=== PATIENT | male | born 1950 | race Caucasian/White ===

== ENCOUNTER 2021-10-06 09:15 | Outpatient (CLI) | payer MEDICARE ==
[2021-10-06 11:16] LABS: Hemoglobin 13.2 g/dL (13.5-17.5); Mean Corpuscular HGB CONC 32.2 g/dL (32.0-36.0); Mean Corpuscular Hemoglobin 30.9 pg (27.0-33.0); Mean Platelet Volume 10.1 fl (7.4-10.4); Platelet Count 333 10x3/uL (150-450); RBC Distribution Width 14.4 % (11.5-14.5); Red Blood Cell (RBC) Count 4.27 10x6/uL (4.32-5.72); White Blood Cell (WBC) Count 8.4 10x3/uL (3.5-10.5)
[2021-10-06 11:19] LABS: Anion Gap 17 mmol/L (10-20); BUN (Urea Nitrogen) 13 mg/dL (8.4-25.7); Calc. Creatinine Clearance 0 mL/min (70-130); Calcium 10.1 mg/dL (7.8-10.44); Carbon Dioxide 26 mmol/L (23-31); Chloride 100 mmol/L (98-107); Glucose 134 mg/dL (83-110); Potassium 4.6 mmol/L (3.5-5.1); Sodium 138 mmol/L (136-145)
[2021-10-06 21:30] LABS: SARS-CoV-2 PCR by NAA Not Detected (NotDetected)
== END 2021-10-06 09:16 | disposition home or self-care (01) ==
LOC: LABBT 09:15
PROVIDERS: ATTEND Neurological Surgery
DX: Z01.818 Encounter for other preprocedural examination (principal); M48.061 Spinal stenosis, lumbar region without neurogenic claudication; Z20.822 Contact with and (suspected) exposure to COVID-19
CPT/HCPCS: 80048; 85027; 93005; U0003; U0005; 93010

== ENCOUNTER 2022-01-28 08:19 | Outpatient (CLI) | payer OTHER ==
[2022-01-28 10:15] LABS: Hemoglobin 13.7 g/dL (13.5-17.5); Mean Corpuscular HGB CONC 32.7 g/dL (32.0-36.0); Mean Corpuscular Volume 94.8 fl (81.2-95.1); Mean Platelet Volume 10.2 fl (7.4-10.4); Platelet Count 289 10x3/uL (150-450); RBC Distribution Width 13.2 % (11.5-14.5); Red Blood Cell (RBC) Count 4.42 10x6/uL (4.32-5.72); White Blood Cell (WBC) Count 6.9 10x3/uL (3.5-10.5)
[2022-01-28 10:42] LABS: Anion Gap 14 mmol/L (10-20); BUN (Urea Nitrogen) 12 mg/dL (8.4-25.7); Calc. Creatinine Clearance 0 mL/min (70-130); Calcium 9.6 mg/dL (7.8-10.44); Carbon Dioxide 26 mmol/L (23-31); Chloride 104 mmol/L (98-107); Glucose 168 mg/dL (83-110); Potassium 4.5 mmol/L (3.5-5.1); Sodium 139 mmol/L (136-145)
[2022-01-28 18:56] LABS: SARS-CoV-2 PCR by NAA Not Detected (NotDetected)
== END 2022-01-28 08:20 | disposition home or self-care (01) ==
LOC: LABBT 08:19
PROVIDERS: ATTEND Neurological Surgery
DX: Z01.818 Encounter for other preprocedural examination (principal); M48.062 Spinal stenosis, lumbar region with neurogenic claudication; Z20.822 Contact with and (suspected) exposure to COVID-19
CPT/HCPCS: 80048; 85027; 93005; U0003; U0005; 93010

== ENCOUNTER 2022-01-31 07:23 | Observation (INO) | payer OTHER ==
[2022-01-31] MEDS ORDERED: ceFAZolin (BATCH) 2 GM/100 ML BAG ONE (09:53)
[2022-01-31] MEDS ORDERED: fentaNYL Citrate/PF 100 MCG/2 ML SYRINGE ONE (10:38)
[2022-01-31] MEDS ORDERED: Promethazine HCl 25 MG/ML VIAL IVPB PRN (11:23)
[2022-01-31] MEDS ORDERED: Promethazine HCl 25 MG/ML VIAL IM PRN ×2 (11:23→13:30)
[2022-01-31] MEDS ORDERED: Ondansetron HCl/PF 4 MG/2 ML Vial IVP PRN (11:23)
[2022-01-31] MEDS ORDERED: Fentanyl 100 MCG/2 ML VIAL ONE (12:27)
[2022-01-31] MEDS ORDERED: Promethazine HCl 25 MG/ML VIAL ONE (12:42)
[2022-01-31] MEDS ORDERED: diphenhydrAMINE 25 MG CAP PO PRN (13:30)
[2022-01-31] MEDS ORDERED: Ondansetron PF 4 MG/2 ML Vial IM PRN (13:30)
[2022-01-31] MEDS ORDERED: Morphine 2 MG/ML VIAL SLOW IVP PRN (13:30)
[2022-01-31] MEDS ORDERED: Promethazine HCl 12.5 MG SUPP PR PRN (13:30)
[2022-01-31] MEDS ORDERED: Cyclobenzaprine 10 MG TAB PO PRN (13:30)
[2022-01-31] MEDS ORDERED: traMADol HCl 50 MG TAB PO PRN ×2 (13:30)
[2022-01-31] MEDS ORDERED: Mag-Al 1200 mg/1200 mg/30 ML UDCUP PO PRN (13:30)
[2022-01-31] MEDS ORDERED: Milk Of Magnesia 30 ML UDCUP PO PRN (13:30)
[2022-01-31] MEDS ORDERED: Morphine 4 MG/ML VIAL SLOW IVP PRN (13:30)
[2022-01-31] MEDS ORDERED: Promethazine 25 MG TAB PO PRN (13:30)
[2022-01-31] MEDS ORDERED: Acetaminophen/Codeine 30-300mg Tablet PO PRN (13:30)
[2022-01-31] MEDS ORDERED: diphenhydrAMINE 50 MG/ML VIAL IVP PRN (13:30)
[2022-01-31] MEDS ORDERED: Ondansetron PF 4 MG/2 ML Vial IVP PRN (14:00)
[2022-01-31] MEDS: Acetaminophen/Codeine 30-300mg Tablet PO PRN ×2 (14:11→20:56)
[2022-01-31] MEDS ORDERED: Rocuronium Bromide 10 MG/ML (10ML VIAL) ONE (14:32)
[2022-01-31] MEDS ORDERED: Ondansetron PF 4 MG/2 ML Vial ONE (14:32)
[2022-01-31] MEDS ORDERED: Glycopyrrolate 0.2 MG/ML 5 ML SYRINGE ONE (14:32)
[2022-01-31] MEDS ORDERED: Lidocaine 1% PF 5 ML VIAL ONE (14:32)
[2022-01-31] MEDS ORDERED: PROPOFOL 200 MG/20 ML VIAL ONE (14:32)
[2022-01-31] MEDS: ceFAZolin (BATCH) 2 GM in Premix Bag 1 BAG IVPB SCH (17:09)
[2022-02-01] MEDS: Sodium Chloride 0.9% 1,000 ML IV SCH ×2 (00:18→08:01)
[2022-02-01] MEDS: ceFAZolin (BATCH) 2 GM in Premix Bag 1 BAG IVPB SCH (02:27)
[2022-02-01] MEDS ORDERED: Insulin Regular 300 UNITS/3 ML VIAL SC PRN (06:45)
[2022-02-01] MEDS ORDERED: Dextrose 50% Abboject 50 ML SYRINGE SLOW IVP PRN (06:45)
[2022-02-01] MEDS ORDERED: Dextrose 5% in Water 1,000 ML IV PRN (06:45)
[2022-02-01] MEDS: Insulin Regular 300 UNITS/3 ML VIAL SC PRN ×2 (06:55→10:58)
[2022-02-01] MEDS: Acetaminophen/Codeine 30-300mg Tablet PO PRN ×2 (09:02→13:15)
[2022-02-01 12:31] VITALS: BP 117/69; TEMP 98.5
== END 2022-02-01 14:00 | disposition home or self-care (01) ==
LOC: SDC 07:23 → MSONC 11:30
PROVIDERS: ADMIT Neurological Surgery; ATTEND Neurological Surgery
PROC: 01NB0ZZ Release Lumbar Nerve, Open Approach (ICD-10-PCS; principal; 2022-01-31)
DX: M48.062 Spinal stenosis, lumbar region with neurogenic claudication (principal); Z79.4 Long term (current) use of insulin; Z79.84 Long term (current) use of oral hypoglycemic drugs; Z79.899 Other long term (current) drug therapy
CPT/HCPCS: 63047; 76000; 82962 ×2; 97116; 97139; C1713; 36416; 96365; 96375; 96376; G0378; J0690; J1815; J2270; J2405; J2550; J2704; J3010; J3370